=== PATIENT | male | born 1965 | race Caucasian/White ===

== ENCOUNTER → 2020-11-02 | Day surgery (SDC) | payer OTHER ==
[~2020-11-02] VITALS: Ht 165.1 cm; Wt 81.6 kg
[~2020-11-02] MED LIST: ATENOLOL50 MG PO; FISH OIL1000 MG PO; LOVASTATIN40 M1 PO; OMEPRAZOLE10 MG PO; PRAVACHOL40 MG PO
[2020-11-02 07:53] VITALS: BP 161/89
== END | disposition home or self-care (01) | DRG 947 ==
LOC: ORM 06:33
PROVIDERS: ATTEND Urology
DX: R97.20 Elevated prostate specific antigen [PSA] (principal); U07.1 COVID-19; N40.0 Benign prostatic hyperplasia without lower urinary tract symptoms; N52.9 Male erectile dysfunction, unspecified; I10 Essential (primary) hypertension; E78.5 Hyperlipidemia, unspecified; K21.9 Gastro-esophageal reflux disease without esophagitis; F41.9 Anxiety disorder, unspecified; Z53.09 Procedure and treatment not carried out because of other contraindication
CPT/HCPCS: J1956

== ENCOUNTER → 2021-02-08 | Day surgery (SDC) | payer OTHER ==
[~2021-02-08] MED LIST changes: +MEDI-SELTZER PO
[2021-02-08 10:14] VITALS: BP 168/96
== END | disposition home or self-care (01) | DRG 948 ==
LOC: ORM 06:54
PROVIDERS: ATTEND Urology
PROC: 0VB03ZX Excision of Prostate, Percutaneous Approach, Diagnostic (ICD-10-PCS; principal; 2021-02-08)
DX: R97.20 Elevated prostate specific antigen [PSA] (principal); N40.0 Benign prostatic hyperplasia without lower urinary tract symptoms; I10 Essential (primary) hypertension; E78.5 Hyperlipidemia, unspecified; K21.9 Gastro-esophageal reflux disease without esophagitis; F41.9 Anxiety disorder, unspecified; N52.9 Male erectile dysfunction, unspecified
CPT/HCPCS: J1956